=== PATIENT | female | born 1965 | race Caucasian/White ===

== ENCOUNTER → 2020-11-04 12:25 | Outpatient (CLI) | payer OTHER, SELFPAY ==
--- NOTE | ~2020-11-04 | MM_ITS ---
EXAMINATION: MM screening isabel BI w je HISTORY: Screening mammogram, family history of breast cancer in her mother. TECHNIQUE: Craniocaudal and mediolateral oblique 3-D tomosynthesis images were obtained and synthetic 2-D images were generated. CAD analysis was submitted and interpreted. COMPARISON: 02/02/2016, 09/08/2014, 12/06/2012 BREAST PARENCHYMAL COMPOSITION: There are scattered areas of fibroglandular density. FINDINGS: There is no evidence of suspicious mass, calcification, or architectural distortion to sugg est malignancy in either breast. There has been no suspicious interval change. IMPRESSION: 1. No mammographic evidence of malignancy. 2. Recommend routine screening mammography in one year. BI-RADS Category 1: Negative Reviewed, dictated and finalized at location A. MARKETING EXECUTIVE
== END ==
PROVIDERS: Visit Provider Nurse Practitioner Family
DX: Z12.31 Encounter for screening mammogram for malignant neoplasm of breast (principal)
CPT/HCPCS: 77063; 77067

== ENCOUNTER 2022-01-04 09:23 | Outpatient (CLI) | payer OTHER, SELFPAY ==
--- NOTE | ~2022-01-04 | MMUS_ITS ---
EXAMINATION: MM diagnostic isabel BI w je, US breast LT limited HISTORY: Palpable left breast lump under the clavicle. TECHNIQUE: Additional 3-D tomosynthesis images of the breasts were performed and synthetic 2-D images were generated. CAD analysis was submitted and interpreted. High resolution Limited left breast ultr asound was performed. COMPARISON: Comparison to multiple prior studies sequentially, with oldest reviewed study dated 12/06. BREAST PARENCHYMAL COMPOSITION: Breast composed of scattered areas of fibroglandular density FINDINGS: MAMMOGRAPHIC FINDINGS: There are no suspicious masses, calcifications or architectural distortion in either breast to sugges t malignancy. ULTRASOUND: Limited left breast ultrasound: In the left chest wall in the area of palpable concern at 11-12:00 po sition, 18 cm from the nipple there is a circumscribed oval isoechoic mass with horizontal striations measuring 4.9 x 3.3 x 1 cm, most likely benign lipoma. IMPRESSION: 1. Probable benign left breast mass, not identifiable by mammography. 2. Recommend 6 month follow-up Limited left breast ultrasound BI-RADS category 3, probably benign findings. Reviewed, dictated and finalized at location A. CHING MACHINE OPERATOR IMPRESSION: 1. Probable benign left breast mass, not identifiable by mammography. 2. Recommend 6 month follow-up Limited left breast ultrasound BI-RADS category 3, probably benign findings.
== END 2022-01-04 09:24 ==
PROVIDERS: PCP Nurse Practitioner Family; Visit Provider Registered Nurse
DX: N63.25 Unspecified lump in the left breast, overlapping quadrants (principal)
CPT/HCPCS: 76642; 77062; 77066; G0279

== ENCOUNTER 2022-12-25 12:14 | Emergency (ER) | payer OTHER, SELFPAY ==
--- NOTE | ~2022-12-25 | XR_ITS ---
EXAMINATION: XR ribs RT 2V w CXR 2V INDICATION: Right rib pain after fall TECHNIQUE: PA and lateral views of the chest and 3 views of the right ribs were obtained. COMPARISON: 08/14/2016 FINDINGS: The lungs are free of acute opacities. No pleural effusion or pneumothorax. The cardiomedia stinal silhouette is normal. There is moderate thoracic spondylosis. There is mild cortical irregular ity of the right 10th rib near the costochondral junction. IMPRESSION: 1. No acute cardiopulmonary abnormality. 2. Possible nondisplaced fracture of the 10th rib near the costochondral junction. Reviewed, dictated and finalized at location L. LITIES ENGINEERING MANAGER IMPRESSION: 1. No acute cardiopulmonary abnormality. 2. Possible nondisplaced fracture of the 10th rib near the costochondral juncti on.
--- NOTE | ~2022-12-25 | XR_ITS ---
EXAMINATION: XR lumbar spine 2-3V DATE: 12/25/2022 13:16 INDICATION: Right-sided back pain. TECHNIQUE: 3 views of lumbar spine were obtained. COMPARISON: Lumbar spine radiographs 10/23/2004 FINDINGS: There is 3 degrees dextrocurvature of lumbar spine. Vertebral body heights and intervertebr al disc heights are normal. There are endplate osteophytes at most levels. There is multilevel mild f acet joint osteoarthritis. There is an electrode in the right S3 neural foramen. IMPRESSION: 1. Mild lumbar spondylosis. Reviewed, dictated and finalized at location A. WARE ENGINEER IMPRESSION: 1. Mild lumbar spondylosis.
[2022-12-25 12:25] VITALS: BP 175/87; PULSE 119; RESP 16; TEMP 36.4; O2SAT 98
--- NOTE | 2022-12-25 12:54 | ED.BACK ---
HPI - Back Pain/Injury General Chief Complaint: Back Pain/Injury Stated Complaint: cold/flu sx Time Seen by Provider: 12/25/22 12:55 Source: patient Mode of arrival: ambulatory Limitations: no limitations History of Present Illness HPI Narrative: 56 y/o female presented for c/o right lower back/hip pain and 'tremendous headache' since injury yesterday afternoon. States her dogs caused her legs to come out from underneath her, causing her to fall and land on the buttock and right hip/side and strike head on driveway. Denies LOC. Pain is to the right lower back and bilateral ribs. Also reports she had a long coughing fit this morning which caused more rib pain. Denies sob, wheezing, f/c. Denies vision changes, photophobia, dizziness, n/v. Denies numbness, tingling or weakness of lower extremities. Ambulating with steady gait. Taking cold medication with Tylenol. Reports head pain is 7/10. Related Data Home Medications Medication Instructions Recorded Confirmed lisinopril 10 mg tablet 10 mg PO DAILY 12/25/22 12/25/22 oxybutynin chloride 10 mg 10 mg PO DAILY 12/25/22 12/25/22 tablet,extended release 24 hr Allergies Allergy/AdvReac Type Severity Reaction Status Date / Time iodine Allergy Unknown Unknown Verified 12/25/22 12:21 morphine Allergy Unknown Unknown Verified 12/25/22 12:21 nitrofurantoin Allergy Unknown Unknown Verified 12/25/22 12:21 Sulfa (Sulfonamide Allergy Unknown Unknown Verified 12/25/22 12:21 Antibiotics) NITROFURANTOIN MACROCRYSTAL Allergy Mild Unknown Uncoded 12/25/22 12:21 Contrast Media Allergy Unknown Unknown Uncoded 12/25/22 12:21 Review of Systems Review of Systems: CONSTITUTIONAL: Denies body aches, fever, chills EYES: Denies visual changes ENT: Denies rhinorrhea, epistaxis CARDIOVASCULAR: Denies chest pain, palpitations, or edema. RESPIRATORY: Denies dyspnea. GASTROINTESTINAL: Denies abdominal pain, nausea, vomiting, or diarrhea. SKIN: Denies rash, itching, or wounds. MUSCULOSKELETAL: per HPI NEUROLOGIC: Reports headache Denies numbness, tingling, or weakness. All systems reviewed & are unremarkable except as noted in HPI and below [facility] Past Medical History Medical History (Updated 12/25/22 @ 13:54 by Olivia Millan APRN) Hypertension Comments At time of signature, I have reviewed and agree with nursing past medical, surgical, social and family history unless otherwise noted. Please see nursing chart for further information. There is no relevant family history pertinent to the presenting complaint Exam Narrative: GENERAL: Well-appearing HEAD: Normocephalic, atraumatic; no bruising or open areas to posterior head EYES: PERRLA, EOMI conjunctivae clear NECK: Supple. no VPT CHEST: Speaks in full sentences. No respiratory distress. HEART: Regular rate and rhythm. Normal and equal peripheral pulses. EXTREMITIES: Right posterior upper hip with bruising and tenderness with palpation; BLEs with normal strength and sensation, normal range of motion. No open wounds or obvious deformity; alignment normal, pulse palpable and equal bilaterally, skin warm, dry, pink. Capillary refill less than 3 seconds. SKIN: Warm, dry, no rash. NEURO: Alert and oriented x3. PSYCH: Normal mood and affect Course Course Emergency Course: Patient is aware of diagnosis, understands and agrees to treatment plan. Anticipatory guidance given. Patient agrees to follow-up as directed and is aware of reasons to seek care at the emergency department. Portions of this record may have been created with voice recognition software Level of Care: Express Care Visit Vital Signs Vital signs: Vital Signs Temperature 97.6 F 12/25/22 12:25 Pulse Rate 119 H 12/25/22 12:25 Respiratory Rate 16 12/25/22 12:25 Blood Pressure 175/87 H 12/25/22 12:25 Pulse Oximetry 98 12/25/22 12:25 Oxygen Delivery Room Air 12/25/22 12:25 Temperature 97.6 F 12/25/22 12:25 Pulse Rate 119 H 12/25/22
== END 2022-12-25 13:55 | disposition home or self-care (01) ==
PROVIDERS: Emergency Provider Nurse Practitioner Family; PCP Nurse Practitioner Family
DX: R07.81 Pleurodynia (principal); S70.01XA Contusion of right hip, initial encounter; W54.1XXA Struck by dog, initial encounter; R51.9 Headache, unspecified
CPT/HCPCS: 71046; 71100; 72100; 99214; G0463

== ENCOUNTER 2023-04-05 08:17 | Outpatient (CLI) | payer OTHER, SELFPAY ==
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
== END 2023-04-05 08:18 | disposition home or self-care (01) ==
LOC: ANHIMG 08:22
PROVIDERS: PCP Nurse Practitioner Family; Visit Provider Nurse Practitioner Family
DX: E88.89 Other specified metabolic disorders (principal)
CPT/HCPCS: 72220

== ENCOUNTER 2023-05-19 15:03 | Emergency (ER) | payer OTHER, SELFPAY ==
--- NOTE | ~2023-05-19 | XR_ITS ---
EXAMINATION: XR finger 2nd LT min 2V DATE: 05/19/2023 15:33 INDICATION: Pain and swelling at the left second digit TECHNIQUE: Dorsal palmar, lateral and oblique views of the left second digit were obtained COMPARISON: None FINDINGS: Small minimally displaced fracture likely related to avulsion at the volar rim of the base of the lef t second middle phalanx. No other fractures identified. Alignment remains near-anatomic. Joint spaces are normal. Soft tissues welling about the second proximal phalanx. IMPRESSION: 1. Small minimally displaced likely lateral plate avulsion fracture at the base of the left middle ph alanx. Reviewed, dictated and finalized at location A. IMPRESSION: 1. Small minimally displaced likely lateral plate avulsion fracture at the base of the left middle phalanx.
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
[2023-05-19 15:19] VITALS: BP 142/86; PULSE 77; RESP 16; TEMP 36.2; O2SAT 99
== END 2023-05-19 15:56 | disposition home or self-care (01) ==
PROVIDERS: Emergency Provider Nurse Practitioner Family; PCP Nurse Practitioner Family
DX: S62.621A Displaced fracture of middle phalanx of left index finger, initial encounter for closed fracture (principal); V48.5XXA Car driver injured in noncollision transport accident in traffic accident, initial encounter; I10 Essential (primary) hypertension; Z98.84 Bariatric surgery status; F41.9 Anxiety disorder, unspecified; Z85.42 Personal history of malignant neoplasm of other parts of uterus
CPT/HCPCS: 29130; 73140; 99214; G0463

== ENCOUNTER 2023-06-01 12:04 | Outpatient (CLI) | payer OTHER, SELFPAY ==
--- NOTE | ~2023-06-01 | CT_ITS ---
EXAMINATION: CT lumbar spine wo con DATE: 06/01/2023 12:41 INDICATION: Lumbar radiculopathy. TECHNIQUE: Computed tomography (CT) of the lumbar spine was performed without intravenous contrast. A utomated exposure control and iterative reconstruction technique were employed. The dose-length produ ct was 1344.83 mGy-cm. COMPARISON: Lumbar spine radiographs 12/25/2022 FINDINGS: There is an electrode in the right testis 3 neural foramen. There is 3 degrees dextrocurvat ure of lumbar spine. Vertebral body heights are normal. There is mildly decreased disc height at T12- L1. There are chronic bilateral L5 pars defects. The following disc levels are specifically discussed : L1-L2: The disc does not extend beyond the endplate margin. There is mild bilateral facet joint osteo arthritis. There is no neural foraminal stenosis. There is no central canal stenosis. L2-L3: The disc does not extend beyond the endplate margin. There is mild bilateral facet joint osteo arthritis. There is no neural foraminal stenosis. There is no central canal stenosis. L3-L4: The disc does not extend beyond the endplate margin. There is mild right and moderate left fac et joint osteoarthritis. There is no neural foraminal stenosis. There is no central canal stenosis. L4-L5: The disc is bulging. There is mild bilateral facet joint osteoarthritis. There is mild bilater al neural foraminal stenosis. There is no central canal stenosis. L5-S1: The disc is bulging. There is mild bilateral facet joint osteoarthritis. There is mild bilater al neural foraminal stenosis. There is mild central canal stenosis. IMPRESSION: 1. Mild lumbar spondylosis. 2. Chronic bilateral L5 pars defects. Reviewed, dictated and finalized at location E.
== END 2023-06-01 12:05 | disposition home or self-care (01) ==
PROVIDERS: PCP Nurse Practitioner Family; Visit Provider Nurse Practitioner Family
DX: M47.26 Other spondylosis with radiculopathy, lumbar region (principal); R26.9 Unspecified abnormalities of gait and mobility
CPT/HCPCS: 72131

== ENCOUNTER 2024-01-19 12:30 | Emergency (ER) | payer OTHER, SELFPAY ==
--- NOTE | ~2024-01-19 | XR_ITS ---
EXAMINATION: XR foot RT min 3V DATE: 01/19/2024 12:56 INDICATION: Right foot injury and pain. TECHNIQUE: 4 views of right foot were obtained. COMPARISON: Right foot radiographs 01/26/2016 FINDINGS: Bone alignment is normal. There is internal fixation of distal fibula. No acute fracture. T here is mild osteoarthritis of first metatarsophalangeal joint. There is mild midfoot osteoarthritis. There is an enthesophyte at plantar aspect of calcaneal tuberosity. IMPRESSION: 1. Mild polyarticular osteoarthritis. Reviewed, dictated and finalized at location A. RT MACHINE OPERATOR
--- NOTE | 2024-01-19 12:37 | ED.GENADULT ---
HPI - General Adult General Chief complaint: Extremity Injury, Lower Stated complaint: Right Foot Pain Source: patient, RN notes reviewed and old records reviewed Mode of arrival: ambulatory Limitations: no limitations History of Present Illness HPI narrative: 58-year-old female presents to [facility] with complaint of falling yesterday. Patient states having pain in right toes and foot. Patient states things caught toe and fell. Patient denies any other injuries. Patient denies hitting head, LOC, neck or back pain Related Data Home Medications Medication Instructions Recorded Confirmed lisinopril 10 mg tablet 10 mg PO DAILY 12/25/22 01/19/24 oxybutynin chloride 10 mg 10 mg PO DAILY 12/25/22 01/19/24 tablet,extended release 24 hr folic acid 1 mg tablet 1 mg PO DAILY 05/19/23 01/19/24 spironolactone 100 mg tablet 100 mg PO DAILY 05/19/23 01/19/24 thiamine HCl (vitamin B1) 100 mg 100 mg PO DAILY 05/19/23 01/19/24 tablet tolterodine 2 mg capsule,extended 2 mg PO DAILY 05/19/23 01/19/24 release 24 hr Allergies Allergy/AdvReac Type Severity Reaction Status Date / Time iodine Allergy Unknown Unknown Verified 01/19/24 12:33 morphine Allergy Unknown Unknown Verified 01/19/24 12:33 Sulfa (Sulfonamide Allergy Unknown Unknown Verified 01/19/24 12:33 Antibiotics) NITROFURANTOIN MACROCRYSTAL Allergy Mild Unknown Uncoded 01/19/24 12:33 Contrast Media Allergy Unknown Unknown Uncoded 01/19/24 12:33 Review of Systems Constitutional: Constitutional: Reports no additional constitutional complaints, Denies body ache(s), Denies chills, Denies fatigue, Denies fever(s) and Denies headache(s) Eyes: Eyes: Reports no additional eye complaints and Denies blurry vision ENT: Reports system reviewed and no additional complaints, except as documented, Denies vertigo, Denies dizziness, Denies ear discharge, Denies otalgia, Denies facial pain, Denies headache(s), Denies nasal congestion, Denies nasal discharge, Denies sinus pain, Denies sinus pressure and Denies sore throat Cardiovascular: Cardiovascular: Reports no additional cardiovascular complaints, Denies chest pain, Denies chest pain at rest, Denies rapid heart rate and Denies dyspnea Respiratory: Respiratory: Reports no additional respiratory complaints, Denies chest congestion, Denies cough, Denies pain on inspiration, Denies pain with cough and Denies dyspnea Gastrointestinal: Gastrointestinal: Denies abdominal pain, Denies diarrhea, Denies nausea and Denies vomiting Musculoskeletal: Musculoskeletal: Reports as per HPI Comments: right foot and toe pain Integumentary/Breasts: Skin/Breast: Denies rash Neurologic: Reports system reviewed and no additional complaints, except as documented, Denies vertigo, Denies dizziness and Denies headache(s) Endocrine: Endocrine: Denies fatigue PMFSH Past Medical History Medical History Hypertension Comments At the time of my signature, I reviewed and agree with the nursing past medical, surgical, social, and family history. There is no relevant family history pertinent to the patient complaint. Exam Const: General: cooperative, healthy appearing, no acute distress and well nourished Nutritional Appearance: well nourished Orientation/consciousness: patient oriented x3 Limitations: no limitations HENMT: Head: normal to inspection and normocephalic Ears: external ears normal Face/Nose/Sinus: normal facial exam Face and sinus: normal facial exam Mouth: Yes moist mucous membranes Eyes: General: appearance normal, both eyes and all related structures Sclera: sclerae normal Pupils: Equal, round and reactive pupils present Resp: Effort & Inspection: normal respiratory effort, able to speak in complete sentences, no audible wheezes, no cough, no respiratory distress and no retractions Skin: General skin exam: normal color and no rashes or lesions noted Neuro: General
[2024-01-19 12:41] VITALS: BP 136/71; PULSE 96; RESP 18; TEMP 36.4; O2SAT 98
== END 2024-01-19 13:08 | disposition home or self-care (01) ==
PROVIDERS: Emergency Provider Registered Nurse; PCP Nurse Practitioner Family
DX: S90.31XA Contusion of right foot, initial encounter (principal); I10 Essential (primary) hypertension; Z79.899 Other long term (current) drug therapy; W19.XXXA Unspecified fall, initial encounter
CPT/HCPCS: 73630; 99213; G0463